=== PATIENT | female | born 1960 | race African-American/Black ===

== ENCOUNTER 2017-07-24 10:46 | Emergency (ER) | payer BC ==
[~2017-07-24] VITALS: Ht 149.9 cm; Wt 69.4 kg
[~2017-07-24 10:46] MED LIST: ACETAMINOPHEN325 MG PO; ADULT ASPIRIN81 MG PO; ALLI60 MG PO; AMARYL2 M1 PO; AMOXICILLIN500 M PO; AMOXICILLIN875 MG; AMOXICILLIN875 MG PO; AMOXIL500 MG PO; ANTIVERT12.5 MG PO; ANTIVERT25 MG PO; ASPIR 8181 M1 PO; ASPIR-LOW81 MG PO; BENTYL20 MG PO; CIPRO500 MG PO; COLACE100 MG PO; COMPAZINE10 M PO; CORTISPORIN EAR10 M LEFT EAR; DARVOCET-N 1001 EA PO; DARVOCET-N 1001 TAB PO; DYAZIDE 37.5/251 CAP PO; FLAGYL250 MG PO; FLEXERIL10 MG PO; GLIMEPIRIDE2 M1 PO; GLIMEPIRIDE2 MG PO; GLUCOPHAGE1000 MG PO; GLUCOPHAGE500 MG PO; HYDROCHLOROTH12.5 M3 PO; HYDROCHLOROTHIA25 M1 PO; HYDROCHLOROTHIA25 MG PO; HYDROCHLOROTHIAZIDE; HYDROCHLOROTHIAZIDE PO; HYDROCODONE; ISOSORBIDE MONO30 M4 PO; KEFLEX500 M4 PO; LIPITOR10 M1 PO; LISINOPRIL PO; LISINOPRIL-HCT1 EAC1 PO; LISINOPRIL-HCT1 EAC3 PO; LISINOPRIL10 MG PO; LISINOPRIL20 M1 PO; LISINOPRIL20 MG PO; LISINOPRIL30 M1 PO; LORTAB 5/500 TA1 TAB PO; LORTAB 5/5001 EA PO; LOW DOSE ASPIRI81 M1 PO; METFORMIN HCL1000 MG PO; METFORMIN HCL500 MG PO; MICROZIDE12.5 M1 PO; MONISTAT 3200 MG/SUP PV; NITROGLYCERIN0.4 M2 SL; NITROSTAT0.4 MG SL; NO HOME MEDICATION XX; NO MEDS; NO MEDS CURRENTLY; NORCO 5/325 TAB1 TAB PO; NORVASC2.5 M1 PO; NORVASC5 M1 PO; OXYCODONE/APAP PO; PEPTO-BISM262 MG/15 PO; PERCOCET 5/3251 TAB PO; PHENERGAN25 MG PO; PREVACID; PREVACID30 MG PO; PRILOSEC OTC20 MG PO; PRILOSEC20 MG PO; PROMETHAZINE25 MG PO; PROTONIX40 MG PO; PYRIDIUM200 M1 PO; SINUS MED; SKELAXIN800 M1 PO; TIMOPTIC2.5 M OP; TRAMADOL HCL50 M2 PO; TRAMADOL HCL50 MG PO; TRIAMTERENE-HCT1 CAP PO; TYLENOL325 M1 PO; TYLENOL325 M2 PO; ULTRAM50 M1 PO; ULTRAM50 MG PO; ZESTRIL10 M3 PO; ZITHROMAX250MG Z-PAK PO; ZOFRAN ODT4 MG/UDTAB PO; [UNRECOGNIZED DRUG - OTHER]; [UNRECOGNIZED DRUG - REMARK]
[2017-07-24] MEDS ORDERED: URINARY PAIN97.5 MG PO (11:01)
[2017-07-24 11:38] LABS: URINE BILIRUBIN NEGATIVE (NEG); URINE BLOOD MODERATE (NEG); URINE GLUCOSE (UA) NEGATIVE (NEG); URINE KETONE NEGATIVE (NEG); URINE LEUKOCYTE ESTERASE POSITIVE (NEG); URINE NITRITE POSITIVE (NEG); URINE PROTEIN MODERATE (NEG)
[2017-07-24 11:39] LABS: URINE APPEARANCE HAZY; URINE COLOR YELLOW
[2017-07-24 11:50] LABS: URINE AMORPHOUS 2+; URINE EPITHELIAL CELLS 0-2 /[HPF] (0-10)
[2017-07-24 11:51] LABS: URINE BACTERIA 3+
[2017-07-24] MEDS ORDERED: MACROBID 100 M100 M1 PO (12:02)
== END 2017-07-24 12:15 ==
LOC: EDMED 10:46
PROVIDERS: Emergency Medicine
DX: N39.0 Urinary tract infection, site not specified (principal); I10 Essential (primary) hypertension; E11.9 Type 2 diabetes mellitus without complications; Z86.73 Personal history of transient ischemic attack (TIA), and cerebral infarction without residual deficits; Z88.5 Allergy status to narcotic agent; Z88.8 Allergy status to other drugs, medicaments and biological substances